=== PATIENT | male | born 1950 | race Caucasian/White ===

== ENCOUNTER → 2021-01-13 | Outpatient (CLI) | payer MEDICARE ==
[~2021-01-13] MED LIST: CELE200C PO; DICL75TA PO; FERR325C PO; NIAC1TBM5 PO; OMEG1CAP2 PO
--- NOTE | 2021-01-13 12:59 | KCIC ---
Examination: MRI of the right shoulder without contrast HISTORY: Osteoarthritis COMPARISON: None available TECHNIQUE: Multiplanar, multisequence MR imaging of the right shoulder performed without contrast FINDINGS: The long head of the biceps tendon within the bicipital groove. The attachment of the long head the b iceps tendon to the superior labral anchor grossly appears intact. The attachment of the subscapulari s tendon, supraspinatus, infraspinatus tendon grossly appears intact. There is moderate increased sig nal identified in the subscapularis, supraspinatus, infraspinatus tendon likely moderate tendinosis. Small amount of fluid identified in the tendon sheath of the biceps tendon sheath. Severe joint space loss identified in the glenohumeral joint with complete cartilage loss with numerous subchondral cys tic changes identified in the glenoid and the humerus head. Large osteophyte identified in the inferi or aspect of the humerus head. Diffuse attenuated appearance of the labrum. Moderate degenerative dis ease acromioclavicular joint. The muscle bulk grossly appears unremarkable. There is obscuration of f at in the rotator interval. Small shoulder joint effusion. IMPRESSION: 1. Severe degenerative changes shoulder joint. 2. Moderate tendinosis of the rotator cuff. 3. Obscuration of fat in the rotator interval. Correlate for adhesive capsulitis. Electronically signed by: Parviz Staton MD (01/13/2021 12:57 PM) [id number]
== END ==
LOC: KCIC MRI 09:46
DX: M19.011 Primary osteoarthritis, right shoulder (principal); M75.31 Calcific tendinitis of right shoulder; E65 Localized adiposity; M25.411 Effusion, right shoulder; M25.711 Osteophyte, right shoulder; M25.811 Other specified joint disorders, right shoulder
CPT/HCPCS: 73221